=== PATIENT | female | born 1950 | race Caucasian/White ===

== ENCOUNTER 2020-12-13 21:33 | Emergency (ER) | payer MEDICARE, SELFPAY ==
[2020-12-13 22:33] VITALS: BP 186/109; PULSE 84; RESP 18; TEMP 36.7; O2SAT 96; BMI 27.8
[2020-12-14 01:50] LABS: Basophils # 0.1 10^3/uL (0.0-0.1); Basophils % 0.5 %; Eosinophils # 0.2 10^3/uL (0.0-0.8); Eosinophils % 1.8 %; Hematocrit 46.8 % (37.0-47.0); Hemoglobin 15.7 g/dL (11.5-15.3); Lymphocytes # 3.4 10^3/uL (0.8-4.8); Lymphocytes % 29.9 %; Mean Corpuscular HGB Conc 33.5 g/dL (30.0-36.0); Mean Corpuscular Hemoglobin 31.5 pg (28.0-34.0); Mean Platelet Volume 10.5 fL (7.4-10.4); Monocytes # 0.9 10^3/uL (0.2-0.9); Monocytes % 7.9 %; Neutrophils # 6.81 10^3/uL (1.8-7.7); Neutrophils % 59.7 %; Nucleated Red Blood Cells % 0 %; Platelet Count 298 10^3/cmm (130-400); Red Blood Count 4.98 10^6/uL (4.1-5.3); Red Cell Distribution Width 12.8 % (12.1-15.1); White Blood Count 11.4 10^3/uL (4.0-10.0)
--- NOTE | 2020-12-14 01:50 | ED_ITS ---
HPI - Abdominal Pain General: Chief Complaint: Abdominal Pain Stated Complaint: abd pain Time Seen by Provider: 12/14/20 01:27 History of Present Illness: HPI narrative: Patient is a 70-year-old female comes to the ED with abdominal pain. Patient says symptoms started approximately 48 hours ago. She states that she has a past medical history of hypertension and GERD. Patient takes Protonix and was out of her prescription for approximately 1 week and started developing symptoms 2 days ago. Patient says she was able to get her PCP to get her Protonix prescription filled today and she took her first dose today. She has had epigastric burning some nausea and vomiting. She is taking [id number]-kguikkn Pepto-Bismol and Tums to provide relief, but it has not helped much. She reports drinking a lot of pineapple juice, soda and coffee recently. Associated Symptoms: Reports belching and nausea; Denies chills, constipation, diarrhea, dysuria, fever(s), hematochezia, hematuria and vomiting Review of Systems Const: Denies: fever(s), chills or fatigue Eyes: Denies: change in vision or eye discomfort ENMT: Denies: throat pain, odynophagia, nasal discharge or nasal congestion Card: Denies: chest pain, palpitations, edema, swelling of feet/ankles, dyspnea on exertion or orthopnea Resp: Denies: dyspnea, productive cough or non-productive cough GI: Reports: abdominal pain (epigastric pain), nausea and belching; Denies: vomiting, diarrhea, constipation or hematochezia : Denies: flank pain, dysuria or hematuria Musc: Denies: neck pain, back pain or extremity swelling Skin/Breast: Denies: rash or new lesions Neuro: Denies: headache(s), numbness in extremities or weakness in extremities PFSH ED PFSH: Family History Mother , 66 CAD (coronary artery disease) Father , 55 No problems noted. Social History Smoking and tobacco status: former smoker Alcohol intake: never Marital status: Current occupational status: retired Physical Exam Const: COMMON NORMALS: no acute distress, patient oriented x3, healthy appearing and alert GENERAL APPEARANCE: cooperative and comfortable HENMT: COMMON NORMALS: normocephalic HEAD & SCALP: normocephalic MOUTH: Normal oral and palatal mucosa present THROAT: posterior oropharynx normal and uvula midline Neck/C-Spine: COMMON NORMALS: supple GENERAL: Yes normal visual inspection Resp: COMMON NORMALS: normal respiratory effort, No retractions, No use of accessory muscles and clear to auscultation bilaterally AUSCULTATION: clear to auscultation bilaterally Cardio: COMMON NORMALS: regular rate, regular rhythm, S1 normal heart sound present, S2 normal heart sound present, No gallops present (Cardio), No clicks present (Cardio), No murmurs present (Cardio) and Peripheral pulses 2+ throughout RATE: regular rate RHYTHM: regular rhythm HEART SOUNDS: S1 normal heart sound present and S2 normal heart sound present PERIPHERAL PULSES: Peripheral pulses 2+ throughout GI: COMMON NORMALS: Normal to inspection, nondistended, normoactive bowel sounds present, Soft to palpation and no masses PALPATION: Yes Soft to palpation and Yes Tenderness to palpation present (GI) (mild epigastric tenderness. Negative stearns's sign) : COMMON NORMALS: Yes no CVA tenderness BLADDER/KIDNEY EXAM: Yes no CVA tenderness Back/Pelvis: COMMON NORMALS: no CVA tenderness Neuro: COMMON NORMALS: patient oriented x3 SENSORIUM/ORIENTATION: Yes alert GAIT: Yes Normal gait present Course Reevaluation(s): Reevaluation #1: Patient says her symptoms improved after GI cocktail. Time: 02:40 Vital Signs: Vital signs: Vital Signs Temperature 98.1 F 12/13/20 22:33 Pulse Rate 78 12/14/20 02:59 Respiratory Rate 16 12/14/20 02:59 Blood Pressure 186/109 12/13/20 22:33 Pulse Oximetry 97 12/14/20 02:59 MDM - Abdominal Pain MDM Narrative: Medical decision making narrative: Patient is a 70-year-old female comes to the ED with acid reflux symptoms. Patient has a history of GERD and was out of her Protonix medication for a week leading up to start of acid reflux symptoms. For the past week patient says she has drank a bunch of pineapple juice, coffee and soda. Exam shows a healthy patient that has some mild epigastric tenderness. CBC, CMP and lipase are unremarkable. H. pylori negative. Patient was given a GI cocktail while here in the ED and her symptoms improved greatly. Patient's GERD symptoms likely due to being out of her Protonix for the past week. She had her prescription filled today and took her first dose today. I told patient that it will take couple days for the Protonix to kick and that she should avoid any acidic foods and drinks. Return to ED precautions given. Follow-up with PCP in 7 to 10 days for reevaluation. Patient understood and agreed with plan. Lab Data: Attestation: I reviewed the patient's lab results. Labs: Lab Results 12/14/20 12/14/20 12/14/20 Range/Units 01:30 01:30 01:30 WBC 11.4 H (4.0-10.0) 10^3/ uL RBC 4.98 (4.1-5.3) 10^6/u L Hgb 15.7 H (11.5-15.3) g/dL Hct 46.8 (37.0-47.0) % MCV 94.0 (81-99) fL MCH 31.5 (28.0-34.0) pg MCHC 33.5 (30.0-36.0) g/dL RDW 12.8 (12.1-15.1) % Plt Count 298 (130-400) 10^3/c mm MPV 10.5 H (7.4-10.4) fL Neut % (Auto) 59.7 % Lymph % (Auto) 29.9 % [place] % (Auto) 7.9 % Eos % (Auto) 1.8 % Baso % (Auto) 0.5 % Neut # (Auto) 6.81 (1.8-7.7) 10^3/u L Lymph # (Auto) 3.4 (0.8-4.8) 10^3/u L [place] # (Auto) 0.9 (0.2-0.9) 10^3/u L Eos # (Auto) 0.2 (0.0-0.8) 10^3/u L Baso # (Auto) 0.1 (0.0-0.1) 10^3/u L Nucleated RBC % (a uto) 0 % Nucleated RBCs # 0.0 /100WBC Sodium 138 (136-145) mmol/L Potassium 3.9 (3.5-5.1) mmol/L Chloride 104 (98-107) mmol/L Carbon Dioxide 24 (22-29) mmol/L Anion Gap 13.9 (5-19) BUN 14 (8-23) mg/dL Creatinine 0.7 (0.5-0.9) mg/dL GFR Calculation 83.0 L (90-130) mL/min Glucose 95 (65-115) mg/dL Calculated Osmolal ity 286 (285-295) mOsm/k g Calcium 9.8 (8.5-10.5) mg/dL Total Bilirubin 0.6 (0.15-1.2) mg/dL AST 20 (0-32) U/L ALT 13 (0-33) U/L Alkaline Phosphata se 91 (35-105) IU/L C-Reactive Protein 7.8 H (0.0-4.9) mg/L Total Protein 7.5 (6.6-8.7) g/dL Albumin 4.5 (3.5-5.2) g/dL Globulin 3.0 (1.3-4.6) g/dL Lipase 26 (13-60) U/L Urine Color (Yellow) Urine Appearance (CLEAR) Urine pH (5-7) Ur Specific Gravit y (1.005-1.030) Urine Protein (Negative) Urine Glucose (UA) (Normal) Urine Ketones (Negative) Urine Blood (Negative) Urine Nitrate (Negative) Urine Bilirubin (Negative) Urine Urobilinogen (Negative) mg/dL Ur Leukocyte Shwetha ase (Negative) Urine RBC (0-2) /hpf Urine WBC (0-5) /hpf Ur Squamous Epith Cells (0-5) /hpf Amorphous Sediment Urine Bacteria (NONE) /hpf Urine Mucus /hpf H. pylori IgG Anti body Negative (Negative) 12/14/20 Range/Units 01:58 WBC (4.0-10.0) 10^3/ uL RBC (4.1-5.3) 10^6/u L Hgb (11.5-15.3) g/dL Hct (37.0-47.0) % MCV (81-99) fL MCH (28.0-34.0) pg MCHC (30.0-36.0) g/dL RDW (12.1-15.1) % Plt Count (130-400) 10^3/c mm MPV (7.4-10.4) fL Neut % (Auto) % Lymph % (Auto) % [place] % (Auto) % Eos % (Auto) % Baso % (Auto) % Neut # (Auto) (1.8-7.7) 10^3/u L Lymph # (Auto) (0.8-4.8) 10^3/u L [place] # (Auto) (0.2-0.9) 10^3/u L Eos # (Auto) (0.0-0.8) 10^3/u L Baso # (Auto) (0.0-0.1) 10^3/u L Nucleated RBC % (a uto) % Nucleated RBCs # /100WBC Sodium (136-145) mmol/L Potassium (3.5-5.1) mmol/L Chloride (98-107) mmol/L Carbon Dioxide (22-29) mmol/L Anion Gap (5-19) BUN (8-23) mg/dL Creatinine (0.5-0.9) mg/dL GFR Calculation (90-130) mL/min Glucose (65-115) mg/dL Calculated Osmolal ity (285-295) mOsm/k g Calcium (8.5-10.5) mg/dL Total Bilirubin (0.15-1.2) mg/dL AST (0-32) U/L ALT (0-33) U/L Alkaline Phosphata se (35-105) IU/L C-Reactive Protein (0.0-4.9) mg/L Total Protein (6.6-8.7) g/dL Albumin (3.5-5.2) g/dL Globulin (1.3-4.6) g/dL Lipase (13-60) U/L Urine Color Yellow (Yellow) Urine Appearance Clear (CLEAR) Urine pH 5 (5-7) Ur Specific Gravit y 1.020 (1.005-1.030) Urine Protein Neg (Negative) Urine Glucose (UA) Norm (Normal) Urine Ketones 1+ H (Negative) Urine Blood 2+ H (Negative) Urine Nitrate Negative (Negative) Urine Bilirubin Neg (Negative) Urine Urobilinogen Norm (Negative) mg/dL Ur Leukocyte Shwetha ase Negative (Negative) Urine RBC 5-10 H (0-2) /hpf Urine WBC 0-4 H (0-5) /hpf Ur Squamous Epith Cells 10-15 H (0-5) /hpf Amorphous Sediment Not Reportable Urine Bacteria Trace (NONE) /hpf Urine Mucus 3+ /hpf H. pylori IgG Anti body (Negative) Discharge Plan Discharge Patient Disposition: Home Clinical Impression: Chronic GERD Condition: Stable Prescriptions: New ondansetron 4 mg tablet,disintegrating 4 mg PO Q8H Qty: 12 RF: 0 No Action pantoprazole [Protonix] 40 mg tablet,delayed release (DR/EC) 40 mg PO DAILY 90 Days Qty: 90 RF: 0 Discharge Orders: Discharge ED (Routine); Ordered 12/14/20 Ordered By: Alcon Escobar Referrals: Marta Dow DO [Primary Care Provider] - Discharge Diet: Advance as tolerated Discharge Activity: Resume usual activity Patient Instructions: Gastroesophageal Reflux Disease (ED) Activity Restrictions/Additional Instructions: Follow-up with medical provider as directed in 7 to 10 days for reevaluation. Take medications as prescribed. Continue taking your Protonix to help with your acid reflux symptoms. Avoid acidic foods and drinks, caffeinated beverages or spicy foods. Return to the ER or your medical provider if condition worsens. Please read and understand discharge instructions. If any questions, please ask. Coding Level of Care Code ED Salesperson [employer] for [employer] Fwd Exam Comprehensive
[2020-12-14] MEDS: lidocaine 2% viscous 15 ML, aluminum-mag hydrox-simethicon 30 ML, sucralfate oral liq 1 GM PO (01:52)
[2020-12-14 02:07] LABS: Alanine Aminotransferase 13 U/L (0-33); Albumin Level 4.5 g/dL (3.5-5.2); Alkaline Phosphatase 91 IU/L (35-105); Aspartate Amino Transferase 20 U/L (0-32); Blood Urea Nitrogen 14 mg/dL (8-23); C Reactive Protein 7.8 mg/L (0.0-4.9); Calcium 9.8 mg/dL (8.5-10.5); Carbon Dioxide 24 mmol/L (22-29); Chloride 104 mmol/L (98-107); Glucose 95 mg/dL (65-115); Lipase 26 U/L (13-60); Osmolality Calculated 286 mOsm/kg (285-295); Sodium 138 mmol/L (136-145); Total Bilirubin 0.6 mg/dL (0.15-1.2); Total Protein 7.5 g/dL (6.6-8.7)
[2020-12-14 02:11] LABS: Anion Gap 13.9 (5-19); Potassium 3.9 mmol/L (3.5-5.1)
[2020-12-14 02:13] LABS: Add Urine Microscopic? YES; Bilirubin Urine Neg (Negative); Blood Urine 2+ (Negative); Glucose Urine UA Norm (Normal); Ketones Urine 1+ (Negative); Leukocyte Esterase Urine Negative (Negative); Nitrate Urine Negative (Negative); Protein Urine Neg (Negative); Urine Appearance Clear (CLEAR); Urine Color Yellow (Yellow); Urobilinogen Urine Norm (Negative); pH Urine 5 (5-7)
[2020-12-14 02:25] LABS: H. Pylori IgG Antibody Negative (Negative)
[2020-12-14 02:36] LABS: WBC Urine 0-4 /hpf (0-5)
[2020-12-14 02:37] LABS: Add Urine Culture? No; Bacteria Urine TRACE /hpf; Mucus Urine 3+ /hpf
[2020-12-14 02:59] VITALS: PULSE 78; RESP 16; O2SAT 97
== END 2020-12-14 03:00 | disposition home or self-care (01) ==
PROVIDERS: Emergency Medicine; Emergency Provider Physician Assistant; PCP Family Medicine
DX: K21.9 Gastro-esophageal reflux disease without esophagitis (principal); Z87.891 Personal history of nicotine dependence
CPT/HCPCS: 80053; 81001; 83690; 85025; 86140; 86677; 99283

== ENCOUNTER 2022-01-18 12:55 | Outpatient (CLI) | payer MEDICARE, SELFPAY ==
--- NOTE | 2022-01-18 13:19 | MM_ITS ---
WS: [id number] BILATERAL 3D TOMOSYNTHESIS DIGITAL SCREENING MAMMOGRAPHY WITH CAD CLINICAL INFORMATION: SCREENING HISTORY: Screening mammogram. No current complaints. COMPARISON: TECHNIQUE: Bilateral CC and MLO views. FINDINGS: Scattered fibroglandular densities bilaterally. Vascular calcification. A few incidental punctate nish cifications. No suspicious focal mass, asymmetry, calcifications, or architectural distortion. No karolina dence of malignancy. MM/[place] [id number] IMPRESSION: BI-RADS: 2-Benign FOLLOW UP: 1 Year Follow-up Recommend return to annual screening mammography.
== END 2022-01-18 12:56 | disposition home or self-care (01) ==
LOC: RAD 12:58
PROVIDERS: PCP Family Medicine; Visit Provider Family Medicine
DX: Z12.31 Encounter for screening mammogram for malignant neoplasm of breast (principal)
CPT/HCPCS: 77063; 77067

== ENCOUNTER 2022-10-01 09:36 | Outpatient (CLI) | payer MEDICARE, SELFPAY ==
--- NOTE | 2022-10-01 | ECG_ITS ---
[facility] Test Date: 2022-10-01 Pat Name: Marta Alvarado Department: Room: Gender: Female Greenskeeper Laborer: : 1950 Requested By: Britney Velazquez Order Number: [id number] Tracey MD: Javed Rock M.D. Interpretive Statements NAME OF STUDY: EXERCISE SESTAMIBI STRESS TEST INDICATION: [Chest Pain, ] EXERCISE DATA: The patient was exercised by Ed protocol. Baseline heart rate was 70 beats per minute. Baseline blood pressure was 183/115 millimeters of mercury. Target heart rate was 127 beats per minute. Maximum heart rate achieved was 160 which was 125% of the target heart rate. Maximum blood pressure was 195/102 millimeters of mercury. Total exercise time was 4 minutes 52 seconds. Maximum METs achieved was 7. The reason for ending the test was maximal effort achieved. The patient complained of shortness of breath during the stress test, which then resolved at the end of the test. ELECTROCARDIOGRAM: BASELINE: Showed sinus rhythm, normal axis, no significant ST-T changes at the baseline noted. [] EXERCISE: At the peak exercise level, [] No significant ST-T changes suggestive of ischemia noted. [] RECOVERY: During the recovery period, heart rate dropped appropriately. No significant ST-T changes in the recovery suggestive of ischemia noted. [] CONCLUSION: 1. Exercise capacity fair 2. Heart rate response was appropriate 3. Blood pressure response was appropriate 4. Symptoms not suggestive of ischemia. 5. Electrocardiogram portion of the stress test was not suggestive of ischemia. 6. Nuclear scan will be documented separately. Electronically Signed On 10-10-2022 20:42:53 GENERAL OFFICE ASSOCIATE by Javed Rock M.D. [id number]
[2022-10-01 09:43] VITALS: BMI 25.7
--- NOTE | 2022-10-01 10:09 | NMCV_ITS ---
NM candi perf SPECT r/s* [id number] Marta Alvarado Age: 71 Gender: F : 1950 Exam Date: 10/01/2022 10:48 Ordering Phys: Britney Joel MD Technologist: CHRIS Alejandro Exam Location: [facility] Indications: CHEST PAIN STRESS TEST [facility] IMAGE PROTOCOL Rest/Stress 1 Exercise Day Radiopharmaceutical Dose (mCi) Administration Site Administered by Rest: Tc-99m 10.5 IV CHRIS Meier Sestamibi Stress:Tc-99m 33.0 IV CHRIS Alejandro Sestamiarben Rest: 01-Oct-2022 60 Discovery 630 Stress: 01-Oct-2022 30 Discovery 630 Radiopharmaceutical was injected at 100% maximum heart rate. Images obtained in supine and prone position. SPECT RESULTS Technical Quality: Excellent Raw Data Analysis: Normal Image Corrections: No attenuation or motion correction applied Summed Stress Score: 1 Summed Rest Score: 2 Summed Difference Score: 0 PERFUSION FINDINGS There is a small sized, fixed perfusion defect noted in the apical lateral wall. 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 No evidence of ischemia seen. FUNCTIONAL RESULTS (calculated via Gated SPECT) Stress Image LV EF (%): 82 Stress EDV (mL):68 TID: 0.73 Stress ESV (mL):12 FUNCTIONAL FINDINGS: There is normal left ventricular systolic function. IMPRESSIONS 1. 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 No evidence of ischemia noted. 2. LV systolic function is normal. Javed Rock MD (Electronically Signed) Final Date: 01 October 2022 13:46 S
[2022-10-01 11:45] VITALS: BP 166/104; PULSE 74
== END 2022-10-01 09:37 | disposition home or self-care (01) ==
PROVIDERS: PCP Family Medicine; Visit Provider Family Medicine
DX: R07.9 Chest pain, unspecified (principal)
CPT/HCPCS: 36415; 78452; 93017; A9500

== ENCOUNTER 2022-10-16 11:48 | Emergency (ER) | payer MEDICARE, SELFPAY ==
[2022-10-16] VITALS (21 sets, daily range): BP systolic 114–212; BP diastolic 90–110; PULSE 62–81; RESP 14–23; TEMP 36.3; O2SAT 88–99
--- NOTE | 2022-10-16 12:10 | ECG_ITS ---
[facility] Test Date: 2022-10-16 Pat Name: Marta Alvarado Department: Room: Gender: Female Space Operations: : 1950 Requested By: Carlos Lentz Order Number: [id number] Tracey MD: Greer Berry M.D. Measurements Intervals [place] Rate: 69 P: 60 VA: 127 QRS: 22 QRSD: 85 T: 36 QT: 392 QTc: 420 Interpretive Statements SINUS RHYTHM POSSIBLE LEFT ATRIAL ENLARGEMENT [-0.1mV P-WAVE IN V1/V2] LOW QRS VOLTAGE IN PRECORDIAL LEADS [QRS DEFLECTION < 1.0 mV IN CHEST LEADS] Compared to ECG 08/30/2018 11:02:06 No significant changes Electronically Signed On 10-16-2022 18:24:26 STOCKROOM COORDINATOR by Greer Berry M.D. [email or web address]
--- NOTE | 2022-10-16 12:18 | XRR_ITS ---
PROCEDURE INFORMATION: Exam: XR Chest Exam date and time: 10/16/2022 12:22 PM Age: 71 years old Clinical indication: Pain; Chest pressure; Additional info: Dyspnea/cough TECHNIQUE: Imaging protocol: Radiologic exam of the chest. Views: 1 view. COMPARISON: CR XR chest 2V* [id number] 08/30/2018 11:22 AM FINDINGS: Lungs: Unremarkable. No consolidation. Pleural spaces: Unremarkable. No pleural effusion. No pneumothorax. Heart/Mediastinum: Unremarkable. No cardiomegaly. Bones/joints: Unremarkable. No interval changes seen comparing to prior examination XR/XR chest 1V portable [id number] IMPRESSION: No acute findings.
--- NOTE | 2022-10-16 12:55 | ED_ITS ---
HPI - Chest Pain General: Chief Complaint: Arrhythmia/Palpitations Stated Complaint: Heart issues Time Seen by Provider: 10/16/22 12:08 Source: patient Mode of arrival: ambulatory History of Present Illness: 71-year-old female presents emergency room complaining of episodes of chest pain. She has had chest discomfort for the las t several months. It is intermittent at times. She most often gets it at night when she is laying down she will sit up in bed and after a few minutes it resolves usually takes about 3 to 4 minutes. She recalls one episode within the last week where she got chest discomfort while she was doing some housework. It begins in the epigastric area and radiates into the chest and arms. Is not associated with any shortness of breath or diaphoresis. She had a stress test done October 01 which is on this chart and was reviewed. There is a small sized area of prior infarct in left circumflex flex artery but there is no evidence of ischemia on the test. Ventricular function was normal. Overall there is no ischemia on the stress test done 2 weeks ago. She is not having any symptoms at this time. She is frustrated by the pace of the work-up to this point. MD complaint: chest pain Onset (ago): month(s) Timing of current episode: episodic Prior episodes: Yes Onset: during rest Pain location: substernal Pain radiation: right arm and left arm Severity: mild Quality: aching Relieving factors: other (Sitting up in bed) Associated symptoms: Deny abdominal pain, diaphoresis, dyspnea, fever(s), leg edema, nausea, palpitations, sense of impending doom, syncope or vomiting Treatment prior to arrival: none Review of Systems Const: Denies: fever(s), chills, fatigue, malaise or diaphoresis ENMT: Denies: throat pain, ear or mastoid pain, nasal discharge or nasal congestion Card: Denies: chest pain, palpitations or syncope Resp: Denies: dyspnea GI: Denies: abdominal pain, nausea or vomiting : Denies: flank pain, difficulty voiding, dysuria, urinary frequency or urinary urgency Skin/Breast: Denies: rash or pruritus [facility] ED PFSH: Medical History (Updated 10/16/22 @ 16:34 by Carlos Vasques DO) Chronic cystitis Dyspareunia in female Dysuria Surgical History (Updated 10/16/22 @ 16:07 by Carlos Vasques DO) H/O knee surgery H/O partial cystectomy H/O: hysterectomy Family History Mother , 66 CAD (coronary artery disease) Father , 55 No problems noted. Social History Smoking and tobacco status: former smoker Alcohol intake: never Marital status: Current occupational status: retired Physical Exam Const: GENERAL APPEARANCE: cooperative and comfortable ORIENTATION/CONSCIOUSNESS: Yes awake, Yes oriented to person, Yes oriented to place and Yes oriented to time HENMT: COMMON NORMALS: normocephalic and atraumatic HEAD & SCALP: normocephalic and atraumatic Resp: COMMON NORMALS: normal respiratory effort, No retractions, No use of accessory muscles and clear to auscultation bilaterally AUSCULTATION: clear to auscultation bilaterally Cardio: COMMON NORMALS: regular rate, regular rhythm and No murmurs present (Cardio) RATE: regular rate RHYTHM: regular rhythm GI: COMMON NORMALS: Soft to palpation and No hepatosplenomegaly present AUSCULTATION: Yes normoactive bowel sounds PALPATION: Yes Soft to palpation, No Tenderness to palpation present (GI), No Guarding due to palpation present (GI) and Yes No hepatosplenomegaly present Extremity: COMMON NORMALS: normal to inspection, capillary refill normal, no clubbing, cyanosis or edema, no calf tenderness and no pedal edema Neuro: SENSORIUM/ORIENTATION: Yes oriented to person, Yes oriented to place and Yes oriented to time Skin: COMMON NORMALS: no rashes or lesions noted GENERAL SKIN EXAM: no rashes or lesions noted Course Vital Signs: Vital signs: Vital Signs Temperature 97.4 F L 10/16/22 11:57 Pulse Rate 81 10/16/22 16:30 Respiratory Rate 18 10/16/22 16:52 Blood Pressure 172/98 10/16/22 16:52 Pulse Oximetry 99 10/16/22 16:52 Oxygen Delivery Me thod 10/16/22 12:22 MDM - Chest Pain Medical Decision Making Labs imaging and EKG reviewed. Serial enzymes are negative. She gives a description of her chest pain that actually sounds more GI in nature she gets it most often at night when she sits up it goes away after a few minutes she is already on pantoprazole. She had a recent stress test which showed a questionable small defect however there is no reversible ischemia. Talk to Dr. Rodriguez on-call for cardiology she agreed that they would not at this time recommend angiography. She concurred with the recommendations of increasing her pantoprazole to twice daily continuing the atorvastatin and adding enteric- coated baby aspirin daily. We also recommended starting amlodipine 5 mg daily a nd isosorbide mononitrate 30 mg daily for improved blood pressure control. Finally noted on exam the patient has a basal cell cancer on the left side of her nose encouraged her to follow-up to have that biopsied sometime in the near future. Patient disagreed she said it was from an old injury its been there for years thickened and will not heal and she is convinced it is not a basal cell cancer and is actually angry that we had suggested otherwise. Medical Records I reviewed the patient's medical records. Lab Data I reviewed the patient's lab results. 10/16/22 12:48 10/16/22 12:48 Radiology Impressions Chest X-Ray 10/16/22 12:18 IMPRESSION: No acute findings. Laboratory Results WBC 6.1 10^3/uL (4.0-10.0) 10/16/22 12:48 RBC 4.43 10^6/uL (4.1-5.3) 10/16/22 12:48 Hgb 14.2 g/dL (11.5-15.3) 10/16/22 12:48 Hct 42.5 % (37.0-47.0) 10/16/22 12:48 MCV 95.9 fl (81-99) 10/16/22 12:48 MCH 32.1 pg (28.0-34.0) 10/16/22 12:48 MCHC 33.4 g/dL (30.0-36.0) 10/16/22 12:48 RDW 13.1 % (12.1-15.1) 10/16/22 12:48 Plt Count 247 10^3/cmm (130-400) 10/16/22 12:48 MPV 10.8 fL (7.4-10.4) H 10/16/22 12:48 Neut % (Auto) 57.8 % 10/16/22 12:48 Lymph % (Auto) 34.0 % 10/16/22 12:48 Galax % (Auto) 5.9 % 10/16/22 12:48 Eos % (Auto) 1.6 % 10/16/22 12:48 Baso % (Auto) 0.5 % 10/16/22 12:48 Neut # (Auto) 3.54 10^3/uL (1.8-7.7) 10/16/22 12:48 Lymph # (Auto) 2.1 10^3/uL (0.8-4.8) 10/16/22 12:48 [place]ax # (Auto) 0.4 10^3/uL (0.2-0.9) 10/16/22 12:48 Eos # (Auto) 0.1 10^3/uL (0.0-0.8) 10/16/22 12:48 Baso # (Auto) 0.0 10^3/uL (0.0-0.1) 10/16/22 12:48 Nucleated RBC % (auto) 0 % 10/16/22 12:48 Nucleated RBCs # 0.0 /100WBC 10/16/22 12:48 Sodium 141 mmol/L (136-145) 10/16/22 12:48 Potassium 4.1 mmol/L (3.5-5.1) 10/16/22 12:48 Chloride 103 mmol/L (98-107) 10/16/22 12:48 Carbon Dioxide 25 mmol/L (22-29) 10/16/22 12:48 Anion Gap 17.1 (5-19) 10/16/22 12:48 BUN 11 mg/dL (8-23) 10/16/22 12:48 Creatinine 0.7 mg/dL (0.5-0.9) 10/16/22 12:48 GFR Calculation 82.7 mL/min (90-130) L 10/16/22 12:48 Glucose 84 mg/dL (65-115) 10/16/22 12:48 Calculated Osmolality 291 mOsm/kg (285-295) 10/16/22 12:48 Calcium 9.2 mg/dL (8.5-10.5) 10/16/22 12:48 Total Bilirubin 0.7 mg/dL (0.15-1.2) 10/16/22 12:48 AST 19 U/L (0-32) 10/16/22 12:48 ALT 18 U/L (0-33) 10/16/22 12:48 Alkaline Phosphatase 98 U/L (35-105) 10/16/22 12:48 Troponin T Baseline 7 ng/L (0-10) 10/16/22 12:48 Troponin T 120 Minute 7.00 ng/L (0-10) 10/16/22 14:38 Delta Troponin T 0 ABS# (0-10) 10/16/22 14:38 Total Protein 6.3 g/dL (6.6-8.7) L 10/16/22 12:48 Albumin 4.4 g/dL (3.5-5.2) 10/16/22 12:48 Globulin 1.9 g/dL (1.3-4.6) 10/16/22 12:48 Discharge Plan Discharge Patient Disposition: Home Clinical Impression: HTN (hypertension), Atypical chest pain, Gastroesophageal reflux disease, Basal cell carcinoma (BCC) of left side of nose Condition: Stable Prescriptions: New amlodipine 5 mg tablet 5 mg PO DAILY Qty: 30 0RF isosorbide mononitrate 30 mg tablet extended release 24 hr 30 mg PO DAILY Qty: 30 0RF aspirin 81 mg tablet,delayed release (DR/EC) 81 mg PO DAILY Qty: 30 0RF pantoprazole 40 mg tablet,delayed release (DR/EC) 40 mg PO BID Qty: 60 0RF No Action atorvastatin 40 mg tablet 40 mg PO DAILY meloxicam 15 mg tablet 15 mg PO DAILY sertraline 100 mg tablet lisinopril 10 mg tablet 10 mg PO DAILY Depo-Provera 150 mg/mL Syringe 150 mg IM Q28D Discharge Orders: Discharge ED (Routine); Ordered 10/16/22 Ordered By: Carlos Vasques Referrals: Britney Joel MD [Primary Care Provider] - Discharge Diet: Cardiac Patient Instructions: Opioid Safety, Pain Management Activity Restrictions/Additional Instructions: You were seen today for atypical chest pain. Your description of your symptoms suggest that the pain is related to reflux. Your recent stress test did not show any areas of reversible ischemia (heart muscle at risk for from low blood flow). Your blood pressure was elevated. I discussed your case with the balancing machine set up worker on-call she agreed with our recommendations of adding amlodipine 5 mg daily isosorbide mononitrate 30 mg daily and baby aspirin daily. Cardiology also recommended that you continue your atorvastatin at 40 mg daily. Their office will attempt to work you in for a cardiology appointment sooner. Incidental notation of what appears likely to be a basal cell cancer on the left side of your nose strongly suggest you have this biopsied sometime in the near future. Coding Level of Care Code ED Serging Machine Operator Automatic for Yahir Fwd Exam Detailed
[2022-10-16 13:20] LABS: Basophils % 0.5 %; Eosinophils # 0.1 10^3/uL (0.0-0.8); Eosinophils % 1.6 %; Hematocrit 42.5 % (37.0-47.0); Hemoglobin 14.2 g/dL (11.5-15.3); Lymphocytes # 2.1 10^3/uL (0.8-4.8); Mean Corpuscular HGB Conc 33.4 g/dL (30.0-36.0); Mean Corpuscular Hemoglobin 32.1 pg (28.0-34.0); Mean Corpuscular Volume 95.9 fl (81-99); Mean Platelet Volume 10.8 fL (7.4-10.4); Monocytes # 0.4 10^3/uL (0.2-0.9); Monocytes % 5.9 %; Neutrophils # 3.54 10^3/uL (1.8-7.7); Neutrophils % 57.8 %; Nucleated Red Blood Cells % 0 %; Platelet Count 247 10^3/cmm (130-400); Red Blood Count 4.43 10^6/uL (4.1-5.3); Red Cell Distribution Width 13.1 % (12.1-15.1); White Blood Count 6.1 10^3/uL (4.0-10.0)
[2022-10-16 13:42] LABS: Alanine Aminotransferase 18 U/L (0-33); Albumin Level 4.4 g/dL (3.5-5.2); Alkaline Phosphatase 98 U/L (35-105); Anion Gap 17.1 (5-19); Aspartate Amino Transferase 19 U/L (0-32); Blood Urea Nitrogen 11 mg/dL (8-23); Calcium 9.2 mg/dL (8.5-10.5); Carbon Dioxide 25 mmol/L (22-29); Chloride 103 mmol/L (98-107); Globulin 1.9 g/dL (1.3-4.6); Glomerular Filtration Rate 82.7 mL/min (90-130); Glucose 84 mg/dL (65-115); Osmolality Calculated 291 mOsm/kg (285-295); Potassium 4.1 mmol/L (3.5-5.1); Sodium 141 mmol/L (136-145); Total Bilirubin 0.7 mg/dL (0.15-1.2); Total Protein 6.3 g/dL (6.6-8.7); Troponin(5th) Baseline 7 ng/L (0-10)
--- NOTE | 2022-10-16 14:24 | ECG_ITS ---
[facility] Test Date: 2022-10-16 Pat Name: Marta Alvarado Department: Room: Gender: Female [employer]: : 1950 Requested By: Carlos Lentz Order Number: [id number] Tracey MD: Greer Berry M.D. Measurements Intervals [place] Rate: 59 P: 20 NC: 119 QRS: 22 QRSD: 89 T: 35 QT: 415 QTc: 412 Interpretive Statements SINUS BRADYCARDIA WITH SHORT NC INTERVAL Compared to ECG 10/16/2022 12:10:22 Short NC interval now present Sinus rhythm no longer present Electronically Signed On 10-16-2022 18:29:54 MEDICAID SERVICE COORDINATOR by Greer Berry M.D. [id number]
[2022-10-16] MEDS: hyDRALAzine 20 mg/mL INJ 1 mL 10 MG IVP (14:31)
[2022-10-16] MEDS: amlodipine 10 mg Tablet PO (14:35)
[2022-10-16 15:42] LABS: Troponin 5 2HR Delta 0 ABS# (0-10)
== END 2022-10-16 16:53 | disposition home or self-care (01) ==
PROVIDERS: Emergency Provider Family Medicine; PCP Family Medicine
DX: R07.89 Other chest pain (principal); I10 Essential (primary) hypertension; K21.9 Gastro-esophageal reflux disease without esophagitis; C44.311 Basal cell carcinoma of skin of nose; Z87.891 Personal history of nicotine dependence
CPT/HCPCS: 71045; 80053; 84484; 85025; 93005; 96374; 99285; J0360

== ENCOUNTER → 2022-11-30 12:12 | Outpatient (BNVA) | payer MEDICARE, SELFPAY | PROVIDERS: PCP Family Medicine; Visit Provider Internal Medicine | DX: Z01.812 Encounter for preprocedural laboratory examination (principal); I20.0 Unstable angina; I10 Essential (primary) hypertension; Z79.82 Long term (current) use of aspirin; Z87.891 Personal history of nicotine dependence | CPT/HCPCS: 99204 ==

== ENCOUNTER 2022-12-16 05:41 | Outpatient (CLI) | payer MEDICARE, SELFPAY ==
[2022-12-16] VITALS (16 sets, daily range): BP systolic 121–173; BP diastolic 72–98; PULSE 52–71; RESP 6–18; TEMP 36.1–37.1; O2SAT 92–98; BMI 25.9
--- NOTE | 2022-12-16 06:00 | XACV_ITS ---
Gender: Female : 1950 Exam Priority: Routine Diagnostic Cath Status: Elective Diagnostic Findings * Non-obstructive coronary artery disease. * Left main artery: Patent. LAD: Mid LAD has mild 20 to 30% stenosis. Left circumflex artery: Patent. RCA: Patent. * Coronary angiography shows right dominance. Conclusions 1. Non-obstructive coronary artery disease. Recommendations * Continue current medical management and risk factor modification. Interventional RX Recommendation: medical therapy and/or counseling Diagnostic RX Recommendation: medical therapy and/or counseling Anticoagulation: Heparin I, the attending physician, have reviewed and verified all procedure medications. Yes, all medications given per verbal order Report Signatures Finalized by Javed Rock MD on 12/26/2022 11:19 AM
[2022-12-16] MEDS: aspirin 325 mg Tablet PO (06:30)
[2022-12-16] MEDS: diphenhydrAMINE 50 mg Capsule PO (06:30)
[2022-12-16 06:42] LABS: Basophils % 0.6 %; Eosinophils # 0.2 10^3/uL (0.0-0.8); Eosinophils % 2.4 %; Hematocrit 42.8 % (37.0-47.0); Hemoglobin 14.6 g/dL (11.5-15.3); Lymphocytes # 2.3 10^3/uL (0.8-4.8); Lymphocytes % 32.4 %; Mean Corpuscular HGB Conc 34.1 g/dL (30.0-36.0); Mean Corpuscular Hemoglobin 31.6 pg (28.0-34.0); Mean Corpuscular Volume 92.6 fl (81-99); Mean Platelet Volume 10.1 fL (7.4-10.4); Monocytes # 0.5 10^3/uL (0.2-0.9); Monocytes % 7.5 %; Neutrophils % 56.8 %; Nucleated Red Blood Cells % 0 %; Platelet Count 270 10^3/cmm (130-400); Red Blood Count 4.62 10^6/uL (4.1-5.3); Red Cell Distribution Width 12.9 % (12.1-15.1); White Blood Count 7.2 10^3/uL (4.0-10.0)
[2022-12-16 07:06] LABS: Anion Gap 15.9 (5-19); Blood Urea Nitrogen 9 mg/dL (8-23); Calcium 9.8 mg/dL (8.5-10.5); Carbon Dioxide 24 mmol/L (22-29); Chloride 102 mmol/L (98-107); Glucose 97 mg/dL (65-115); Osmolality Calculated 285 mOsm/kg (285-295); Potassium 3.9 mmol/L (3.5-5.1); Sodium 138 mmol/L (136-145)
--- NOTE | 2022-12-16 07:20 | W.PM.OPSUD ---
Surgery/Procedure H&P Update DATE OF PROCEDURE: December 16, 2022 DATE H&P PERFORMED: 12/10/22 H&P UPDATE INFORMATION: I have reviewed H&P completed within last 30 days, I have examined patient prior to procedure and No changes to prior documentation PREOP DIAGNOSIS: Worsening angina PRIMARY INDICATION FOR PROCEDURE: Worsening angina PLANNED PROCEDURE: Operation Date: 12/16/22 07:00 Proposed Procedures p Left Heart Cath 83937,I20.0(Left) - Javed Rock M.D Possible percutaneous coronary intervention PATIENT REASSESSED PRIOR TO SEDATION, WITH NO CHANGE NOTED: Yes PHYSICAL EXAM: alert, oriented x 3, clear to auscultation bilaterally and regular rate & rhythm AIRWAY EVAL/ANESTHESIA PLAN: normal airway, ASA III, Local Anesthesia, Risks, benefits & alternatives of sedation and/or procedure discussed and Patient agrees to continue as planned ADDITIONAL INFORMATION: Moderate sedation
--- NOTE | 2022-12-16 08:30 | PC.NURSE ---
Transfer orders received. TR Band on patients right wrist clean, dry, et intact. No drainage or hematoma noted. Vitals stable. No c/o pain or discomfort. Patient transferred from CPRU to CSU via wheelchair. All belongings sent with patient.
== END 2022-12-16 13:15 | disposition home or self-care (01) ==
LOC: CCL 06:10 → CSU 08:52
PROVIDERS: PCP Family Medicine; Visit Provider Internal Medicine
DX: I25.10 Atherosclerotic heart disease of native coronary artery without angina pectoris (principal); Z87.891 Personal history of nicotine dependence; I10 Essential (primary) hypertension
CPT/HCPCS: 36415; 80048; 85025; 93458; 96365; 99152; 99153; C1769; C1887; C1894; G0378; J1644; J2250; J3010; J3490; J7030; Q0163; Q9967

== ENCOUNTER 2023-03-03 12:34 | Outpatient (CLI) | payer MEDICARE, SELFPAY ==
--- NOTE | 2023-03-03 12:46 | MM_ITS ---
WS: [id number] SCREENING DIGITAL BREAST TOMOSYNTHESIS MAMMOGRAM WITH CAD HISTORY: Screening. COMPARISON: 01/18/2022, 08/23/2018 and 12/05/2015 Bilateral CC and MLO with tomosynthesis and synthetic mammography submitted. Computer aided detection analyzed. Breast composition: There are scattered areas of fibroglandular density. There is an elongated nodule in the central LEFT breast near 6-7 o'clock measuring 2.4 x 0.7 cm. Mass has been present on prior s tudies and may be a dilated duct. Mass seems larger on today's examination. Recommend ultrasound eval uation. Benign breast arterial calcification. MM/[place] [id number] IMPRESSION: BI-RADS: 0-Incomplete: Need additional imaging evaluation FOLLOW UP: Need Additional Imaging Recommendation: LEFT breast ultrasound, limited. Inferior medial LEFT breast.
== END 2023-03-03 12:35 | disposition home or self-care (01) ==
LOC: RAD 12:36
PROVIDERS: PCP Family Medicine; Visit Provider Family Medicine
DX: Z12.31 Encounter for screening mammogram for malignant neoplasm of breast (principal); N63.25 Unspecified lump in the left breast, overlapping quadrants
CPT/HCPCS: 77063; 77067

== ENCOUNTER 2023-04-12 12:07 | Outpatient (CLI) | payer MEDICARE, SELFPAY ==
--- NOTE | 2023-04-12 12:16 | US_ITS ---
WS: [id number] ULTRASOUND LEFT BREAST HISTORY: ABNORMAL MAMMO COMPARISON: Prior ultrasound 06/27/2013, mammogram 03/03/2023, 01/18/2022 and 08/23/2018 TECHNIQUE: 2-D and Doppler. Mixed echogenicity mass LEFT breast at 6:00, 2 cm from the nipple corresponds to the mammographic abn ormality. Mass is ovoid measuring 1.7 x 1.0 x 0.7 cm. No increased vascularity. Similar appearing mas s was noted on the breast ultrasound of 06/27/2013. No additional abnormality. US/US breast LT limited* [id number] IMPRESSION: BI-RADS: 3-Probably Benign FOLLOW-UP: 6 Month Follow-up Recommend LEFT breast ultrasound follow-up in 6 months. Patient states prior surgical removal of a mass at a similar location several y ears ago. Mass appears slightly more prominent by mammography but similar in si ze compared to a prior ultrasound. Recommend 6 month follow-up to document domi tional stability.
== END 2023-04-12 12:08 | disposition home or self-care (01) ==
PROVIDERS: PCP Family Medicine; Visit Provider Family Medicine
DX: R92.8 Other abnormal and inconclusive findings on diagnostic imaging of breast (principal)
CPT/HCPCS: 76642

== ENCOUNTER 2023-11-14 08:20 | Outpatient (CLI) | payer MEDICARE, SELFPAY ==
--- NOTE | 2023-11-14 08:27 | US_ITS ---
WS: [id number] ULTRASOUND LEFT BREAST HISTORY: BREAST LUMP COMPARISON: 04/12/2023, 06/27/2013, mammogram 03/03/2013, 01/18/2022 and 08/23/2018 TECHNIQUE: 2-D and Doppler. The focal mixed echogenicity mass in the LEFT breast at 6:00 is reidentified. This is seen on both ma mmography and ultrasound and has been present since at least 2015. This is a tubular mass measuring 1.8 cm in length by 0.9 x 0.6 cm. Mass has been present since at [address] 2015 but has slowly increased in size. IMPRESSION: US/US breast LT limited* [id number] BI-RADS: 4-Suspicious Finding-Biopsy Should Be Considered FOLLOW-UP: Biopsy Recommended Tubular mass at 6:00 within the LEFT breast has been present on multiple prior mammogram and CT evaluations of the breast. Favor this is probably benign but i t has increased slightly in size since 2016. Consider ultrasound-guided biopsy to confirm pathology. This will eliminate continued serial evaluation by ultras ound.
== END 2023-11-14 08:21 | disposition home or self-care (01) ==
LOC: RAD 08:20
PROVIDERS: PCP Family Medicine; Visit Provider Family Medicine
DX: N63.25 Unspecified lump in the left breast, overlapping quadrants (principal)
CPT/HCPCS: 76642

== ENCOUNTER 2023-11-23 11:47 | Outpatient (CLI) | payer MEDICARE, SELFPAY ==
--- NOTE | 2023-11-23 11:56 | US_ITS ---
WS: [id number] ULTRASOUND-GUIDED LEFT BREAST BIOPSY CLINICAL INFORMATION: ABNORMAL MAMMOGRAM FINDINGS: The procedure including risks, benefits, and complications were discussed with the patient who agreed to proceed. Using sterile technique patient was prepped and draped in the usual sterile fashion. Aft er 1% lidocaine utilizing real-time ultrasound guidance 5 14-gauge cores were obtained of the LEFT br east lesion at the 6 o'clock position 2 cm from the nipple. Subsequently a titanium clip was placed i n the biopsy cavity. No immediate complications. Pathology demonstrates : 1. Benign breast parenchyma with mild fibrocystic changes including dense fibrosis, focal ductal ect sy, and cyst formation. 2. No epithelial hyperplasia, atypia, or malignancy is identified. 3. No microcalcifications are identified. IMPRESSION: 1. Uncomplicated ultrasound-guided LEFT breast biopsy. 2. The pathology demonstrates benign breast parenchyma detailed above. US/[place] [id number] BI-RADS: 2-Benign FOLLOW UP: 1 Year Follow-up Recommend return to annual screening mammography.
== END 2023-11-23 11:48 | disposition home or self-care (01) ==
LOC: RAD 11:48
PROVIDERS: PCP Family Medicine; Visit Provider Family Medicine
DX: N60.32 Fibrosclerosis of left breast (principal); N60.42 Mammary duct ectasia of left breast; N60.02 Solitary cyst of left breast
CPT/HCPCS: 19083; 88305

== ENCOUNTER → 2023-12-29 13:30 | Outpatient (BNVA) | payer MEDICARE, SELFPAY | PROVIDERS: PCP Family Medicine; Visit Provider Dermatology | DX: C44.311 Basal cell carcinoma of skin of nose (principal); L57.0 Actinic keratosis; L82.1 Other seborrheic keratosis; L57.8 Other skin changes due to chronic exposure to nonionizing radiation; D22.5 Melanocytic nevi of trunk | CPT/HCPCS: 17000; 99203 ==

== ENCOUNTER → 2024-04-30 13:28 | Outpatient (BNVA) | payer MEDICARE, SELFPAY | PROVIDERS: PCP Family Medicine; Visit Provider Nurse Practitioner Family | DX: L57.0 Actinic keratosis (principal); L85.3 Xerosis cutis; L57.8 Other skin changes due to chronic exposure to nonionizing radiation; Z85.828 Personal history of other malignant neoplasm of skin | CPT/HCPCS: 17000; 99213 ==

== ENCOUNTER → 2024-09-10 14:01 | Outpatient (BNVA) | payer MEDICARE, SELFPAY | PROVIDERS: PCP Family Medicine; Visit Provider Nurse Practitioner Family | DX: L81.4 Other melanin hyperpigmentation (principal); L57.8 Other skin changes due to chronic exposure to nonionizing radiation; Z08 Encounter for follow-up examination after completed treatment for malignant neoplasm; Z85.828 Personal history of other malignant neoplasm of skin; L82.0 Inflamed seborrheic keratosis | CPT/HCPCS: 17110; 99213 ==

== ENCOUNTER → 2025-06-13 14:03 | Outpatient (BNVA) | payer MEDICARE, SELFPAY | PROVIDERS: PCP Family Medicine; Visit Provider Nurse Practitioner Family | DX: L57.8 Other skin changes due to chronic exposure to nonionizing radiation (principal); D22.62 Melanocytic nevi of left upper limb, including shoulder; Z08 Encounter for follow-up examination after completed treatment for malignant neoplasm; Z85.828 Personal history of other malignant neoplasm of skin; L82.0 Inflamed seborrheic keratosis; L29.89 Other pruritus; R20.8 Other disturbances of skin sensation; D48.5 Neoplasm of uncertain behavior of skin; L57.0 Actinic keratosis | CPT/HCPCS: 11102; 17000; 17110; 99213 ==

== ENCOUNTER → 2025-07-09 10:43 | Outpatient (BNVA) | payer MEDICARE, SELFPAY | PROVIDERS: PCP Family Medicine; Visit Provider Dermatology | DX: C44.319 Basal cell carcinoma of skin of other parts of face (principal); C44.311 Basal cell carcinoma of skin of nose | CPT/HCPCS: 12052; 17311 ==

== ENCOUNTER → 2025-07-22 12:50 | Outpatient (BNVA) | payer MEDICARE, SELFPAY | PROVIDERS: PCP Family Medicine; Visit Provider Dermatology | DX: C44.311 Basal cell carcinoma of skin of nose (principal) | CPT/HCPCS: 99213 ==